=== PATIENT | female | born 1985 ===

== ENCOUNTER 2017-05-05 12:49 | Emergency (ER) | payer OTHER ==
[2017-05-05 13:09] VITALS: BP 105/60; PULSE 84; RESP 20; TEMP 98.4; O2SAT 98
--- NOTE | 2017-05-05 13:41 | ED PDOC ---
HPI: Skin/Bite Injury Time Seen by Provider: 05/05/17 13:11 Chief Complaint (Nursing): Abnormal Skin Integrity Chief Complaint (Provider): rash History Per: Patient History/Exam Limitations: no limitations Onset/Duration Of Symptoms: Days (x6) Current Symptoms Are (Timing): Still Present Additional Complaint(s): Chas Gomes is a 32 year old female who presents to the emergency department for an evaluation of hyperpigmented rash on her stomach, left arm and left leg that she first noticed 4 days ago. Patient states she traveled last week to [place] and and did an excursion where she swam in a pond. She noticed rash the day after this excursion. She denies any pain, pruritus or skin irritation. She states rash is not raised. No fever, chills or URI symptoms. Patient states rash seems to be going away but she came to ED today to be checked out. Patient does report sun exposure while in [place]. Past Medical History Reviewed: Historical Data, Nursing Documentation, Vital Signs Vital Signs: Last Vital Signs Temp 98.4 F 05/05/17 13:07 Pulse 84 05/05/17 13:07 Resp 20 05/05/17 13:07 BP 105/60 05/05/17 13:07 Pulse Ox 98 05/05/17 13:44 - Medical History PMH: No Chronic Diseases - Surgical History Surgical History: No Surg Hx - Family History Family History: States: No Known Family Hx - Social History Current smoker - smoking cessation education provided: Yes (socially) Alcohol: Social Drugs: Denies - Home Medications Home Medications: Ambulatory Orders Medication Instructions Recorded Cephalexin [Keflex] 500 mg PO QID #28 cap 05/15/15 Ibuprofen [Motrin] 600 mg PO TID PRN #30 tab 05/15/15 Docusate Sodium [Colace] 100 mg PO DAILY #30 sgl 08/31/15 Naproxen [Naprosyn] 375 mg PO BID PRN #15 tab 08/31/15 diaZEpam [Valium] 5 mg PO BID PRN #12 tab 08/31/15 - Allergies Allergies/Adverse Reactions: Allergies Allergy/AdvReac Type Severity Reaction Status Date / Time No Known Allergies Allergy Verified 05/05/17 13:07 Review of Systems ROS Statement: Except As Marked, All Systems Reviewed And Found Negative Constitutional: Negative for: Fever, Chills, Weakness, Malaise Cardiovascular: Negative for: Chest Pain Respiratory: Negative for: Cough Gastrointestinal: Negative for: Nausea, Vomiting, Abdominal Pain, Diarrhea Genitourinary Female: Negative for: Dysuria Skin: Positive for: Rash Physical Exam - Reviewed Nursing Documentation Reviewed: Yes Vital Signs Reviewed: Yes - Physical Exam Appears: Positive for: Well, Non-toxic, No Acute Distress Skin: Positive for: Rash (macular, hyperpigmented rash to abdomen, left arm and left leg) Eye Exam: Positive for: Normal appearance, EOMI, PERRL ENT: Negative for: Pharyngeal Erythema, Tonsillar Swelling Cardiovascular/Chest: Positive for: Regular Rate, Rhythm Respiratory: Positive for: Normal Breath Sounds Extremity: Negative for: Pedal Edema Neurologic/Psych: Positive for: Alert, Oriented - ECG O2 Sat by Pulse Oximetry: 98 (RA) Pulse Ox Interpretation: Normal Medical Decision Making Medical Decision Making: Initial Impression: Hyperpigmented rash Patient was instructed to follow up with residential door installer for any persistent symptoms. Scribe Attestation: Documented by Emma Reddy, acting as a scribe for Vinita Mathews PA-C. Provider Scribe Attestation: All medical record entries made by the Scribe were at my direction and personally dictated by me. I have reviewed the chart and agree that the record accurately reflects my personal performance of the history, physical exam, medical decision making, and the department course for this patient. I have also personally directed, reviewed, and agree with the discharge instructions and disposition. Disposition - Clinical Impression Clinical Impression: Hyperpigmentation of skin, Rash - Patient ED Disposition Is Patient to be Admitted: No Counseled Patient/Family Regarding: Diagnosis, Need For Followup - Disposition Referrals: [facility] [Outside] Disposition: Routine/Home Disposition Time: 13:46 Condition: STABLE Additional Instructions: Contact your insurance company directly to obtain referral to residential door installer if symptoms persist. Instructions: Acute Rash (ED) Forms: [employer] ([place]ian)
== END 2017-05-05 13:51 | disposition home or self-care (01) ==
LOC: H.ER 12:49
DX: R21 Rash and other nonspecific skin eruption (principal); L81.9 Disorder of pigmentation, unspecified